=== PATIENT | female | born 1980 | race Two or more races ===

== ENCOUNTER → 2016-09-12 | Outpatient (CLI) | payer MEDICAID | LOC: FIMAGING 08:27 | PROVIDERS: ATTEND Physician Assistant | DX: S69.91XA Unspecified injury of right wrist, hand and finger(s), initial encounter (principal) ==

== ENCOUNTER 2018-06-10 17:13 | Emergency (ER) | payer MEDICAID ==
--- NOTE | 2018-06-10 17:36 | EDPHY ---
H & P Stated Complaint: sore throat, fever for 1 week Time Seen by Provider: 06/10/18 17:19 HPI/ROS: 38 yo F presents c/o sore throat, fatigue, for one week. Some chills. Patient states her menses began today, she also states she has a history of anemia but cannot tolerate taking iron pills secondary to a history of gastroparesis. Additionally she states she has been exposed to several people with mononucleosis at a holiday green party recently. Review of systems As per HPI General positive fever positive chills positive fatigue HEENT no eye pain no eye discharge. No eye redness, positive sore throat Respiratory no cough, no shortness of breath Cardiac no chest pain, no peripheral edema GI no abdominal pain, no diarrhea, no constipation, no nausea, no vomiting no flank pain, no hematuria, no dysuria Musculoskeletal no myalgias, no joint pain Heme no easy bruising, no easy bleeding Endo no polyuria, no polydipsia Skin no rashes, no pruritus Neuro no syncope, no dizziness, no headaches Psych is no suicidal ideation, no homicidal ideation Source: Patient Exam Limitations: No limitations - Personal History LMP (Females 10-55): Now Current Tetanus Diphtheria and Acellular Pertussis (TDAP): Yes Tetanus Vaccine Date: 2010 - Medical/Surgical History Hx Asthma: Yes Hx Chronic Respiratory Disease: No Hx Diabetes: No Hx Cardiac Disease: No Hx Renal Disease: No Hx Cirrhosis: No Hx Alcoholism: No Hx HIV/AIDS: No Hx Splenectomy or Spleen Trauma: No Other PMH: tubal ligation, 3 cessarian section, T9,11 fracture, Gall Bladder Removal, bulging C-Spine discs, Asthma, Osteoporosis, SVT, Bilateral Pneumothorax, Seizures,Tonsillectomy,Cdiff,gastroparesis - Family History Significant Family History: No pertinent family hx - Social History Smoking Status: Never smoked Alcohol Use: None Drug Use: None - Physical Exam Exam: 38 yo F bundled up in down coat, blankets Alert and oriented in no acute distress nontoxic appearance, afebrile Atraumatic normocephalic Extraocular muscles intact, anicteric Neck-supple, neg anterior cervical lymphadenopathy mildly tender to palpation, shoddy postserior cervical nodes, small and non tender Oropharynx positive erythematous, positive cobblestone appearance, no uvular deviation, no purulent exudate, tolerating own secretions, no trismus Lungs clear to auscultation bilaterally Heart regular rate and rhythm Abdomen normoactive bowel sounds soft nontender Extremities no cyanosis clubbing edema Skin no rash Constitutional: Initial Vital Signs Temperature (C) 36.8 C 06/10/18 17:28 Heart Rate 77 06/10/18 17:28 Respiratory Rate 14 06/10/18 17:28 Blood Pressure 105/74 06/10/18 17:28 O2 Sat (%) 99 06/10/18 17:28 O2 Delivery Mode Room Air Allergies/Adverse Reactions: diphenhydramine HCl [From Benadryl] Allergy (Unknown, Verified 06/10/18 17:26) meperidine HCl [From Demerol] Allergy (Unknown, Verified 06/10/18 17:26) phenytoin sodium [From Dilantin] Allergy (Unknown, Verified 06/10/18 17:26) phenytoin sodium extended [From Dilantin] Allergy (Unknown, Verified 06/10/18 17 :26) prochlorperazine [From Compazine] Allergy (Unknown, Verified 06/10/18 17:26) prochlorperazine edisylate [From Compazine] Allergy (Unknown, Verified 06/10/18 17:26) prochlorperazine maleate [From Compazine] Allergy (Unknown, Verified 06/10/18 17 :26) promethazine HCl [From Phenergan] Allergy (Unknown, Verified 06/10/18 17:26) Home Medications: Medication Instructions Recorded Albuterol [Proventil Inhaler HFA 2 puffs IH PRN PRN 03/28/15 (*)] Ibuprofen [Motrin (*)] 600 - 800 mg PO TID PRN 03/28/15 Ondansetron Odt [Zofran Odt] 4 - 8 mg PO Q4PRN PRN #4 tab 11/30/15 Medical Decision Making ED Course/Re-evaluation: pt seen and evaluated for sore throat, fevers, fatigue for one week. strep screen neg monospot ng CBC mild anemia Hgb 11.6 Imp Viral pharyngitis Plan home rest, fluids, acetaminophen as needed for fever, pain f/u pcp Differential Diagnosis: Differential diagnosis considered but Not limited to: Streptococcal pharyngitis, pharyngitis, mononucleosis, URI, influenza, bronchitis - Data Points Laboratory Results: Laboratory Results 06/10/18 18:05 06/10/18 06/10/18 18:05 18:05 WBC 7.08 10^3/uL 10^3/uL (3.80-9.50) RBC 4.90 10^6/uL 10^6/uL (4.18-5.33) Hgb 11.6 g/dL L g/dL (12.6-16.3) Hct 38.4 % % (38.0-47.0) MCV 78.4 fL L fL (81.5-99.8) MCH 23.7 pg L pg (27.9-34.1) MCHC 30.2 g/dL L g/dL (32.4-36.7) RDW 16.1 % H % (11.5-15.2) Plt Count 310 10^3/uL 10^3/uL (150-400) MPV 11.4 fL fL (8.7-11.7) Neut % (Auto) 63.9 % % (39.3-74.2) Lymph % (Auto) 22.9 % % (15.0-45.0) [place] % (Auto) 10.3 % % (4.5-13.0) Eos % (Auto) 1.8 % % (0.6-7.6) Baso % (Auto) 0.8 % % (0.3-1.7) Nucleat RBC Rel Count 0.0 % % (0.0-0.2) Absolute Neuts (auto) 4.52 10^3/uL 10^3/uL (1.70-6.50) Absolute Lymphs (auto) 1.62 10^3/uL 10^3/uL (1.00-3.00) Absolute Monos (auto) 0.73 10^3/uL 10^3/uL (0.30-0.80) Absolute Eos (auto) 0.13 10^3/uL 10^3/uL (0.03-0.40) Absolute Basos (auto) 0.06 10^3/uL 10^3/uL (0.02-0.10) Absolute Nucleated RBC 0.00 10^3/uL 10^3/uL (0-0.01) Immature Gran % 0.3 % % (0.0-1.1) Immature Gran # 0.02 10^3/uL 10^3/uL (0.00-0.10) Monoscreen NEGATIVE (NEGATIVE) Point of Care Test Results: Strep Strep Throat Swab Collection 06/10/18 Date Strep Throat Swab Swab 17:28 Collection Time Strep Result Not Detected Departure - Departure Disposition: Home, Routine, Self-Care Clinical Impression: Acute pharyngitis Condition: Good Instructions: Mononucleosis (ED), Pharyngitis (ED) Referrals: NONE *PRIMARY CARE P,. [Primary Care Provider] - As per Instructions
[2018-06-10 18:44] VITALS: BP 94/68
[2018-06-10 19:29] LABS: PLATELET COUNT 310 10^3/uL (150-400)
== END 2018-06-10 18:53 | disposition home or self-care (01) ==
LOC: CED 17:13
DX: J02.9 Acute pharyngitis, unspecified (principal)
CPT/HCPCS: 99283-ER

== ENCOUNTER 2018-07-19 10:05 | Emergency (ER) | payer MEDICAID ==
[2018-07-19] MEDS ORDERED: NS 1,000 ML IV ONE ×2 (10:27)
--- NOTE | 2018-07-19 10:29 | EDPHY ---
H & P Stated Complaint: 2 weeks of diarrhea, dizzy this morning Time Seen by Provider: 07/19/18 10:20 HPI/ROS: CHIEF COMPLAINT: Diarrhea x2 weeks HISTORY OF PRESENT ILLNESS: 38-year-old female complaining of 2 weeks of diarrhea, greater than 15 stools per 24 hr.. No abdominal pain. No cramping. No nausea or vomiting. Tolerating full oral intake however notes that shortly after eating she will develop watery stool. Today when she was getting ready for buddhism she started feel lightheaded. No syncope or near syncope. No head injury. Denies: Fever, chills, back or flank pain, abdominal pain, myalgias, known sick contacts, recent antibiotic use, recent hospitalization, international travel, untreated water sources PRIMARY CARE PROVIDER: REVIEW OF SYSTEMS: 10 systems reviewed and negative with the exception of the elements mentioned in the history of present illness PAST MEDICAL & SURGICAL HISTORY: Tubal ligation. x3. Cholecystectomy. Bilateral pneumothoraces. Hospital-acquired C diff colitis 2 years ago after tonsillectomy. Gastroparesis SOCIAL HISTORY: Nonsmoker PHYSICAL EXAM (Prior to examination, patient consented to physical exam, hands were washed and my usual and customary physical exam procedures followed) 1) GENERAL: Well-developed, well-nourished, alert and oriented. Appears to be in no acute distress. 2) HEAD: Normocephalic, atraumatic 3) HEENT: Pupils equal, round, reactive to light bilaterally. Sclera anicteric. Nasopharynx, oropharynx, clear, no lesions. Dry mucous membranes. 4) NECK: Full range of motion, no meningeal signs. 5) LUNGS: Clear auscultation bilaterally, no wheezes, no rhonchi, no retractions. 6) HEART: Regular rate and rhythm, no murmur, no heave, no gallop. 7) ABDOMEN: No guarding, no rebound, no focal tenderness, negative McBurney's, negative Chan's, negative Rovsing's, negative peritoneal sign, 8) MUSCULOSKELETAL: Moving all extremities, no focal areas of tenderness, no obvious trauma. No peripheral edema or discoloration. 9) BACK: No CVA tenderness, no midline vertebral tenderness, no fluctuance, no step-off, no obvious trauma, no visual or palpable abnormality. 10) SKIN: No rash, no petechiae. 11) Psychiatric: Patient is oriented X 3, there is no agitation. DIFFERENTIAL DIAGNOSIS: In no particular order including but not limited to functional diarrhea, GI bleed, infectious diarrhea - Personal History LMP (Females 10-55): Now Current Tetanus Diphtheria and Acellular Pertussis (TDAP): Yes Tetanus Vaccine Date: 2010 - Medical/Surgical History Hx Asthma: Yes Hx Chronic Respiratory Disease: No Hx Diabetes: No Hx Cardiac Disease: No Hx Renal Disease: No Hx Cirrhosis: No Hx Alcoholism: No Hx HIV/AIDS: No Hx Splenectomy or Spleen Trauma: No Other PMH: tubal ligation, 3 cessarian section, T9,11 fracture, Gall Bladder Removal, bulging C-Spine discs, Asthma, Osteoporosis, SVT, Bilateral Pneumothorax, Seizures,Tonsillectomy,Cdiff,gastroparesis - Social History Smoking Status: Never smoked Constitutional: Initial Vital Signs Temperature (C) 36.6 C 07/19/18 10:14 Heart Rate 120 H 07/19/18 10:14 Respiratory Rate 18 07/19/18 10:14 Blood Pressure 116/76 07/19/18 10:14 O2 Sat (%) 96 07/19/18 10:14 O2 Delivery Mode Room Air Allergies/Adverse Reactions: diphenhydramine HCl [From Benadryl] Allergy (Unknown, Verified 07/19/18 10:17) meperidine HCl [From Demerol] Allergy (Unknown, Verified 07/19/18 10:17) phenytoin sodium [From Dilantin] Allergy (Unknown, Verified 07/19/18 10:17) phenytoin sodium extended [From Dilantin] Allergy (Unknown, Verified 07/19/18 10 :17) prochlorperazine [From Compazine] Allergy (Unknown, Verified 07/19/18 10:17) prochlorperazine edisylate [From Compazine] Allergy (Unknown, Verified 07/19/18 10:17) prochlorperazine maleate [From Compazine] Allergy (Unknown, Verified 07/19/18 10 :17) promethazine HCl [From Phenergan] Allergy (Unknown, Verified 07/19/18 10:17) Home Medications: Medication Instructions Recorded Albuterol [Proventil Inhaler HFA 2 puffs IH PRN PRN 03/28/15 (*)] Ibuprofen [Motrin (*)] 600 - 800 mg PO TID PRN 03/28/15 Ondansetron Odt [Zofran Odt] 4 - 8 mg PO Q4PRN PRN #4 tab 11/30/15 Medical Decision Making ED Course/Re-evaluation: 1:10 p.m.: Re-evaluation. Patient has been given IV fluids. Heart rate has decreased is now down in the 90s Discussed her laboratory results. She has provide a stool sample which is currently being processed on laboratory. It is negative for occult blood however further evaluation is pending. Do not think the patient needs to wait in the ER for these results. We can call the patient with results later. At this point will hold on antibiotics until GI PCR pathogen is known 4:05 p.m.: Patient had been discharged from the ER. I reviewed the patient's GI PCR which is negative for detected organisms. I called the patient at this time. She has an appointment with [facility] tomorrow. I recommend she keep this appointment. I recommend follow up with Gastroenterology. No indication for antibiotics at this time. - Data Points Laboratory Results: Laboratory Results 07/19/18 10:35 07/19/18 10:35 07/19/18 07/19/18 07/19/18 11:50 10:35 10:35 WBC RBC Hgb Hct MCV MCH MCHC RDW Plt Count MPV Neut % (Auto) Lymph % (Auto) [place] % (Auto) Eos % (Auto) Baso % (Auto) Nucleat RBC Rel Count Absolute Neuts (auto) Absolute Lymphs (auto) Absolute Monos (auto) Absolute Eos (auto) Absolute Basos (auto) Absolute Nucleated RBC Immature Gran % Immature Gran # Sodium 134 mEq/L L mEq/L (135-145) Potassium 3.9 mEq/L mEq/L (3.5-5.2) Chloride 103 mEq/L mEq/L (97-110) Carbon Dioxide 21 mEq/l L mEq/l (22-31) Anion Gap 10 mEq/L mEq/L (6-14) BUN 22 mg/dL mg/dL (7-23) Creatinine 0.7 mg/dL mg/dL (0.6-1.0) Estimated GFR > 60 Glucose 193 mg/dL H mg/dL (70-100) Calcium 8.7 mg/dL mg/dL (8.5-10.4) Total Bilirubin 0.4 mg/dL mg/dL (0.1-1.4) Conjugated Bilirubin 0.3 mg/dL mg/dL (0.0-0.5) Unconjugated Bilirubin 0.1 mg/dL mg/dL (0.0-1.1) AST 27 IU/L IU/L (14-46) ALT 14 IU/L IU/L (9-52) Alkaline Phosphatase 62 IU/L IU/L (38-126) Total Protein 7.1 g/dL g/dL (6.3-8.2) Albumin 4.1 g/dL g/dL (3.5-5.0) Lipase 78 IU/L IU/L (23-300) Beta HCG, Qual NEGATIVE Stool Occult Bld Scrn NEGATIVE (NEGATIVE) 07/19/18 10:35 WBC 6.64 10^3/uL 10^3/uL (3.80-9.50) RBC 5.14 10^6/uL 10^6/uL (4.18-5.33) Hgb 12.2 g/dL L g/dL (12.6-16.3) Hct 39.6 % % (38.0-47.0) MCV 77.0 fL L fL (81.5-99.8) MCH 23.7 pg L pg (27.9-34.1) MCHC 30.8 g/dL L g/dL (32.4-36.7) RDW 18.7 % H % (11.5-15.2) Plt Count 263 10^3/uL 10^3/uL (150-400) MPV 11.5 fL fL (8.7-11.7) Neut % (Auto) 79.0 % H % (39.3-74.2) Lymph % (Auto) 15.2 % % (15.0-45.0) [place] % (Auto) 4.1 % L % (4.5-13.0) Eos % (Auto) 0.5 % L % (0.6-7.6) Baso % (Auto) 0.9 % % (0.3-1.7) Nucleat RBC Rel Count 0.0 % % (0.0-0.2) Absolute Neuts (auto) 5.25 10^3/uL 10^3/uL (1.70-6.50) Absolute Lymphs (auto) 1.01 10^3/uL 10^3/uL (1.00-3.00) Absolute Monos (auto) 0.27 10^3/uL L 10^3/uL (0.30-0.80) Absolute Eos (auto) 0.03 10^3/uL 10^3/uL (0.03-0.40) Absolute Basos (auto) 0.06 10^3/uL 10^3/uL (0.02-0.10) Absolute Nucleated RBC 0.00 10^3/uL 10^3/uL (0-0.01) Immature Gran % 0.3 % % (0.0-1.1) Immature Gran # 0.02 10^3/uL 10^3/uL (0.00-0.10) Sodium Potassium Chloride Carbon Dioxide Anion Gap BUN Creatinine Estimated GFR Glucose Calcium Total Bilirubin Conjugated Bilirubin Unconjugated Bilirubin AST ALT Alkaline Phosphatase Total Protein Albumin Lipase Beta HCG, Qual Stool Occult Bld Scrn Microbiology Results: MICROBIOLOGY 07/19/18 11:50 Stool Gastrointestinal Tract Panel (PCR) - Final No Organism Detected By Pcr Medications Given: Discontinued Medications Sodium Chloride (Ns) 1,000 mls @ 0 mls/hr IV EDNOW ONE; Wide Open PRN Reason: Protocol Stop: 07/19/18 10:28 Last Admin: 07/19/18 11:19 Dose: 1,000 mls Sodium Chloride (Ns) 1,000 mls @ 0 mls/hr IV EDNOW ONE; Wide Open PRN Reason: Protocol Stop: 07/19/18 10:28 Last Admin: 07/19/18 11:19 Dose: 1,000 mls Ondansetron HCl (Zofran Odt) 4 mg PO EDNOW ONE Stop: 07/19/18 10:52 Last Admin: 07/19/18 11:20 Dose: Not Given Ondansetron HCl (Zofran) 4 mg IVP EDNOW ONE Stop: 07/19/18 11:21 Last Admin: 07/19/18 11:21 Dose: 4 mg Departure - Departure Disposition: Home, Routine, Self-Care Clinical Impression: Diarrhea Qualifiers: Diarrhea type: unspecified type Qualified Code(s): R19.7 - Diarrhea, unspecified Condition: Good Instructions: Acute Diarrhea (ED) Additional Instructions: Will call you later with results of your diarrhea study. Return to the ER if you develop abdominal pain, vomiting, worsening diarrhea or any other symptoms that concern you. Referrals: Mery Abdullahi PA [Primary Care Provider] - 1-2 days without fail
[2018-07-19 10:45] LABS: PLATELET COUNT 263 10^3/uL (150-400)
[2018-07-19] MEDS ORDERED: ONDANSETRON DISINTEGRATING 4 MG TAB PO ONE (10:51)
[2018-07-19] MEDS ORDERED: ONDANSETRON 4 MG/2 ML VIAL ONE (11:17)
[2018-07-19] MEDS ORDERED: ONDANSETRON 4 MG/2 ML VIAL IVP ONE (11:20)
[2018-07-19 11:57] VITALS: BP 125/74
== END 2018-07-19 13:22 | disposition home or self-care (01) ==
DX: R19.7 Diarrhea, unspecified (principal); Z90.49 Acquired absence of other specified parts of digestive tract
CPT/HCPCS: J2405